=== PATIENT | male | born 1980 | race Two or more races ===

== ENCOUNTER → 2017-06-17 | Outpatient (REF) ==
[~2017-06-17] MED LIST: ALDA25TA2 PO; FERR1TAB8 PO; FOLI1TAB4 PO; LASI20TA PO; MOTR200T44 PO; OMEP20CA3 PO; PRED20TAB PO; PROP10TA56 PO; Thiamine Hcl PO; VITMTA PO; ZINC220C3 PO
== END ==
LOC: M LAB 10:57